=== PATIENT | female | born 1990 | race Two or more races ===

== ENCOUNTER 2020-02-23 20:25 | Emergency (ER) | payer OTHER ==
[~2020-02-23] VITALS: Ht 170.2 cm; Wt 62.6 kg
[2020-02-23] MEDS ORDERED: ZYRTEC10 M3 (20:41)
[2020-02-23] MEDS ORDERED: DIALYVITE 800-1 EACH (20:41)
[2020-02-23] MEDS ORDERED: NEBUSAL4 M1 IH (21:57)
[2020-02-23] MEDS ORDERED: SALINE NASAL SP88 ML NASAL (21:57)
== END 2020-02-23 22:13 | disposition home or self-care (01) ==
LOC: ER 20:25
DX: J32.8 Other chronic sinusitis (principal)

== ENCOUNTER 2020-08-03 15:04 | Inpatient (IN) | payer OTHER ==
[~2020-08-03] VITALS: Ht 170.2 cm; Wt 71.2 kg
[~2020-08-03 15:04] MED LIST: DIALYVITE 800-1 EACH; NEBUSAL4 M1 IH; SALINE NASAL SP88 ML NASAL; ZYRTEC10 M3
[2020-08-03] MEDS ORDERED: SINGULAIR10 MG PO (15:10)
[2020-08-03] MEDS ORDERED: PRENATAL TABLE1 EAC1 PO (15:10)
== END 2020-08-06 11:38 | disposition home or self-care (01) | DRG 807 ==
LOC: LDR 15:04 → OB/GYN 08-04 18:29
PROVIDERS: ADMIT Obstetrics & Gynecology; ATTEND Obstetrics & Gynecology
PROC: 10E0XZZ Delivery of Products of Conception, External Approach (ICD-10-PCS; principal; 2020-08-03)
PROC: 4A1HXFZ Monitoring of Products of Conception, Cardiac Rhythm, External Approach (ICD-10-PCS; 2020-08-03)
DX: O80 Encounter for full-term uncomplicated delivery (principal); Z37.0 Single live birth; Z3A.39 39 weeks gestation of pregnancy; Z20.822 Contact with and (suspected) exposure to COVID-19